=== PATIENT | female | born 1980 | race Caucasian/White ===

== ENCOUNTER 2023-10-29 23:58 | Emergency (ER) | payer OTHER ==
[~2023-10-29] VITALS: Ht 154.9 cm; Wt 68.0 kg
[2023-10-30 00:03] VITALS: BP 112/72; PULSE 86; RESP 16; TEMP 97.8; O2SAT 99
== END 2023-10-30 02:50 | disposition left against medical advice (07) ==
LOC: MED 23:58
DX: R22.0 Localized swelling, mass and lump, head (principal); Z53.21 Procedure and treatment not carried out due to patient leaving prior to being seen by health care provider
CPT/HCPCS: 99281